=== PATIENT | male | born 2000 | race Caucasian/White ===

== ENCOUNTER 2021-12-22 02:29 | Emergency (ER) | payer MEDICAID ==
[~2021-12-22] VITALS: Ht 175.3 cm; Wt 79.0 kg
[2021-12-22 02:34] VITALS: BP 132/88
== END 2021-12-22 07:19 | disposition left against medical advice (07) ==
LOC: ER 02:29
DX: R07.89 Other chest pain (principal); R51.9 Headache, unspecified; M25.511 Pain in right shoulder
CPT/HCPCS: 71045; 73030; 99284